=== PATIENT | female | born 1980 | race Caucasian/White ===

== ENCOUNTER 2017-06-02 10:09 | Emergency (ER) | payer SELFPAY ==
--- NOTE | 2017-06-02 10:15 | NUR ---
SEE PAPER CHARTING
== END 2017-06-02 10:16 | disposition home or self-care (01) ==
LOC: ER 10:09
DX: Z76.0 Encounter for issue of repeat prescription (principal); Z59.0 Homelessness

== ENCOUNTER 2017-06-05 19:16 | Emergency (ER) | payer SELFPAY ==
[~2017-06-05] VITALS: Ht 175.3 cm; Wt 108.9 kg
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
--- NOTE | 2017-06-05 19:42 | NUR ---
DONALD KAUFMAN AT BEDSIDE FOR EVAL.
--- NOTE | 2017-06-05 19:58 | NUR ---
IV LINE STARTED BLOOD DRAWN AND SENT TO LAB.
[2017-06-05 20:01] LABS: BASOPHILS # (AUTO) 0.1 /CMM (0.0-0.2); BASOPHILS % (AUTO) 1.3 % (0.0-2.0); EOSINOPHILS # (AUTO) 0.3 /CMM (0.0-0.7); EOSINOPHILS % (AUTO) 3.4 % (0.0-6.0); HEMATOCRIT 39 % (33-45); LYMPHOCYTES # (AUTO) 2.4 /CMM (0.8-4.8); MEAN CORPUSCULAR HEMOGLOBIN 30 PG (26.0-33.0); MEAN CORPUSCULAR HGB CONC 34 g/dl (31.0-36.0); MEAN CORPUSCULAR VOLUME 90 fL (82-100); MONOCYTES # (AUTO) 0.5 /CMM (0.1-1.30); NEUTROPHILS # (AUTO) 4.5 /CMM (1.8-8.9); NEUTROPHILS % (AUTO) 57.3 % (43.0-81.0); PLATELET COUNT (AUTO) 370 /CMM (150-450); WHITE BLOOD COUNT (AUTO) 7.8 K/uL (4.3-11.0)
[2017-06-05 20:13] LABS: CALCIUM, SERUM 8.6 mg/dL (8.5-10.1); CREATININE 0.5 mg/dL (0.6-1.3); POTASSIUM 3.8 mmol/L (3.5-5.1)
[2017-06-05 20:17] LABS: ALBUMIN 3.3 g/dL (3.4-5.0); BILIRUBIN,TOTAL 0.2 mg/dL (0.2-1.0); TOTAL PROTEIN, SERUM 6.7 g/dL (6.4-8.2)
[2017-06-05 20:18] LABS: SALICYLATE 1.1 mg/dL (2.8-20.0)
--- NOTE | 2017-06-05 22:30 | NUR ---
PT IS SLEEPING IN BED. ON MONITOR W/ STABLE VITALS NOTED. WILL CONTINUE TO MONITOR.
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
--- NOTE | 2017-06-06 00:30 | NUR ---
PT OK TO DISCHARGE PER DR ORNELAS. Patient discharged to home in stable condition. Written and verbal after care instructions given. Patient verbalizes understanding of instruction.Patient is awake and alert to self, day, and place. PT ambulatory with a steady gait
[2017-06-06 00:57] VITALS: BP 114/71
== END 2017-06-06 00:57 | disposition home or self-care (01) ==
LOC: ER 19:17
DX: F10.129 Alcohol abuse with intoxication, unspecified (principal); R41.82 Altered mental status, unspecified; R73.09 Other abnormal glucose
CPT/HCPCS: 36415; 80048; 80076; 80329; 82962; 84703; 85025; 99284; A4606; G0480 ×2; Z7610

== ENCOUNTER 2018-12-22 20:59 | Emergency (ER) | payer MEDICARE, MEDICAID ==
[~2018-12-22] VITALS: Ht 175.3 cm; Wt 125.6 kg
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
[2018-12-22] MEDS ORDERED: NICOTINE PATCH (21MG) 21 MG PATCH.TD24 TD SCH (21:30)
[2018-12-22 21:49] LABS: BASOPHILS # (AUTO) 0.1 /CMM (0.0-0.2); BASOPHILS % (AUTO) 0.7 % (0.0-2.0); EOSINOPHILS % (AUTO) 2.7 % (0.0-6.0); HEMATOCRIT 34 % (33-45); LYMPHOCYTES % (AUTO) 37.4 % (20.0-44.0); MEAN CORPUSCULAR HGB CONC 32 g/dl (31.0-36.0); MEAN CORPUSCULAR VOLUME 78 fL (82-100); MONOCYTES # (AUTO) 0.8 /CMM (0.1-1.30); MONOCYTES % (AUTO) 10.1 % (2.0-12.0); NEUTROPHILS % (AUTO) 49.1 % (43.0-81.0); PLATELET COUNT (AUTO) 322 /CMM (150-450); RED BLOOD CELL COUNT(AUTO) 4.37 MIL/uL (4.0-5.2); WHITE BLOOD COUNT (AUTO) 8.2 K/uL (4.3-11.0)
--- NOTE | 2018-12-22 22:05 | NUR ---
URINE COLLECTED AND SENT TO LAB
[2018-12-22 22:09] LABS: APPEARANCE,URINE Clear (CLEAR); BILIRUBIN,URINE Negative (NEGATIVE); BLOOD, URINE Negative Ery/uL (NEGATIVE); COLOR,URINE Yellow (YELLOW); KETONES,URINE Negative (NEGATIVE); LEUKOCYTE ESTERASE ,URINE Negative (NEGATIVE); NITRITE, URINE Negative (NEGATIVE); PH,URINE 5.5 (5.0-8.0); PROTEIN,URINE Negative (NEGATIVE); UGLUCOSE Negative (NEGATIVE); UROBILINOGEN,URINE 0.2 EU/dL (0.2)
[2018-12-22 22:10] LABS: ALBUMIN 3.4 g/dL (3.4-5.0); BILIRUBIN,DIRECT 0.1 mg/dL (0.0-0.2); BILIRUBIN,TOTAL 0.2 mg/dL (0.2-1.0); CALCIUM, SERUM 8.6 mg/dL (8.5-10.1); CREATININE 0.7 mg/dL (0.6-1.3); POTASSIUM 3.5 mmol/L (3.5-5.1); TOTAL PROTEIN, SERUM 7.4 g/dL (6.4-8.2)
[2018-12-22 22:12] LABS: SALICYLATE 2.1 mg/dL (2.8-20.0)
[2018-12-22] MEDS ORDERED: NICOTINE PATCH (21MG) 21 MG PATCH.TD24 TD ONE (22:12)
--- NOTE | 2018-12-22 22:38 | NUR ---
BROTHER URSZULA MIRANDA [phone]
[2018-12-22] MEDS ORDERED: OLANZAPINE 10 MG VIAL IM ONE ×2 (23:00→23:05)
--- NOTE | 2018-12-23 01:15 | NUR ---
Patient is resting comfortably in bed with eyes closed. Easily aroused. VSS
[2018-12-23 03:02] VITALS: BP 133/77
== END 2018-12-23 03:03 | disposition home or self-care (01) ==
LOC: ER 21:00
DX: F10.10 Alcohol abuse, uncomplicated (principal); F19.10 Other psychoactive substance abuse, uncomplicated; Z88.8 Allergy status to other drugs, medicaments and biological substances; Z59.0 Homelessness
CPT/HCPCS: 36415; 80048; 80076; 80305; 80307; 80329; 81001; 85025; 96372; 99283; G0480; J3490; 81000-TC

== ENCOUNTER 2018-12-23 04:55 | Emergency (ER) | payer MEDICARE, MEDICAID ==
[~2018-12-23] VITALS: Ht 167.6 cm; Wt 131.1 kg
[2018-12-23 04:55] VITALS: BP 151/78
--- NOTE | 2018-12-23 05:10 | NUR ---
CALLED IN WAITING ROOM, NO ANSWER.
--- NOTE | 2018-12-23 05:36 | NUR ---
CALLED IN WAITING ROOM, NO ANSWER.
--- NOTE | 2018-12-23 06:35 | NUR ---
CALLED IN WAITING ROOM, NO ANSWER.
== END 2018-12-23 06:35 | disposition left against medical advice (07) ==
LOC: ER 04:57
DX: Z53.21 Procedure and treatment not carried out due to patient leaving prior to being seen by health care provider (principal); R11.2 Nausea with vomiting, unspecified

== ENCOUNTER 2018-12-24 15:32 | Emergency (ER) | payer MEDICARE, MEDICAID ==
[~2018-12-24] VITALS: Ht 175.3 cm; Wt 125.6 kg
[2018-12-24 15:59] LABS: BASOPHILS # (AUTO) 0.1 /CMM (0.0-0.2); BASOPHILS % (AUTO) 0.9 % (0.0-2.0); EOSINOPHILS % (AUTO) 2.1 % (0.0-6.0); HEMATOCRIT 29 % (33-45); HEMOGLOBIN 9.5 g/dL (11.5-14.8); LYMPHOCYTES # (AUTO) 3.3 /CMM (0.8-4.8); LYMPHOCYTES % (AUTO) 37.2 % (20.0-44.0); MEAN CORPUSCULAR HGB CONC 33 g/dl (31.0-36.0); MEAN CORPUSCULAR VOLUME 79 fL (82-100); MONOCYTES # (AUTO) 0.6 /CMM (0.1-1.30); MONOCYTES % (AUTO) 7.3 % (2.0-12.0); NEUTROPHILS # (AUTO) 4.6 /CMM (1.8-8.9); NEUTROPHILS % (AUTO) 52.5 % (43.0-81.0); PLATELET COUNT (AUTO) 299 /CMM (150-450); RED BLOOD CELL COUNT(AUTO) 3.71 MIL/uL (4.0-5.2); WHITE BLOOD COUNT (AUTO) 8.8 K/uL (4.3-11.0)
[2018-12-24 16:06] LABS: CALCIUM, SERUM 7.5 mg/dL (8.5-10.1); CARBON DIOXIDE 25 mmol/L (21-32); CHLORIDE 109 mmol/L (98-107); CREATININE 0.6 mg/dL (0.6-1.3); GLUCOSE 97 mg/dL (74-106); POTASSIUM 3.6 mmol/L (3.5-5.1); SODIUM SERUM 143 mmol/L (136-145); UREA NITROGEN, BLOOD 9 mg/dL (7-18)
[2018-12-24 16:19] LABS: ACETAMINOPHEN < 5 ug/ml (10-30); ALANINE AMINOTRANSFERASE 38 U/L (12-78); ALBUMIN 2.9 g/dL (3.4-5.0); ALCOHOL, BLOOD 188 mg/dL (0-0); ALKALINE PHOSPHATASE 67 U/L (46-116); ASPARTATE AMINOTRANSFERASE 27 U/L (15-37); BILIRUBIN,TOTAL 0.1 mg/dL (0.2-1.0); SALICYLATE 1.6 mg/dL (2.8-20.0); TOTAL PROTEIN, SERUM 6.4 g/dL (6.4-8.2)
[2018-12-24] MEDS: NICOTINE PATCH (21MG) 21 MG PATCH.TD24 TD SCH (16:40)
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
[2018-12-24 18:49] LABS: APPEARANCE,URINE CLEAR (CLEAR); BILIRUBIN,URINE NEGATIVE (NEGATIVE); BLOOD, URINE NEGATIVE Ery/uL (NEGATIVE); COLOR,URINE YELLOW (YELLOW); KETONES,URINE NEGATIVE (NEGATIVE); LEUKOCYTE ESTERASE ,URINE 1+ (NEGATIVE); NITRITE, URINE NEGATIVE (NEGATIVE); PH,URINE 5.5 (5.0-8.0); PROTEIN,URINE NEGATIVE (NEGATIVE); UGLUCOSE NEGATIVE (NEGATIVE); UROBILINOGEN,URINE 0.2 EU/dL (0.2)
[2018-12-24 18:54] LABS: BACTERIA,URINE 1+ /HPF (None Seen); RBC,URINE NONE SEEN /HPF (0-2)
[2018-12-24 18:55] LABS: SQUAMOUS EPITHELIAL CELL,UR Few /HPF (None Seen)
[2018-12-24] MEDS ORDERED: CEFTRIAXONE 1 G VIAL IM ONE (19:30)
--- NOTE | 2018-12-24 19:30 | NUR ---
sitter at bedside for SI safety measures
--- NOTE | 2018-12-24 19:35 | NUR ---
Pt S/B [facility] FOR PSYCH EVAL AT BEDSIDE.
--- NOTE | 2018-12-24 19:47 | NUR ---
Note kileyone in EDM - 12/24/18 at 2006 by LUCINDA Pt IS CLEARED BY FOR DISCHARGE. CLEARED BY PSYCH FOR SAFE DC. ALL MEDS GIVEN.
[2018-12-24] MEDS ORDERED: LIDOCAINE /MPF 1% VIAL 5 ML VIAL ONE (19:51)
--- NOTE | 2018-12-24 20:04 | NUR ---
Note undone in EDM - 12/24/18 at 2006 by LUCINDA Patient discharged to home in stable condition. Written and verbal after care instructions given. Patient verbalizes understanding of instruction. is outside waiting for pt in car. Patient was taken outside via wheelchair by staff member, was safely transferred to car. Pt left facility with no s/s of acute distress or sob noted. VS stable. No IV access was placed on pt. ID band removed.
--- NOTE | 2018-12-24 20:06 | NUR ---
documented on wrong pt. Luciana Reddy in bed 15 is not yet discharged.
--- NOTE | 2018-12-24 20:13 | NUR ---
all out of rocephin vials in the ER pyxis. called pharmacy to restock. once pharmacy has restocked pyxis with rocephin will administer the ordered med to pt.
[2018-12-24] MEDS ORDERED: CEFTRIAXONE 500 MG VIAL ONE (20:25)
--- NOTE | 2018-12-24 20:49 | NUR ---
administered Rocephin 1g IM on left deltoid.
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
[2018-12-24] MEDS ORDERED: ACETAMINOPHEN ES 500 MG TABLET ONE (21:29)
[2018-12-24] MEDS ORDERED: ACETAMINOPHEN ES 500 MG TABLET PO ONE (21:30)
--- NOTE | 2018-12-24 21:40 | NUR ---
ADMINISTERED TYLENOL ES 1000MG PO. Pt C/O GENERALIZED PAIN ALL OVER BODY.
--- NOTE | 2018-12-24 23:14 | NUR ---
pt is sleeping comfortably in bed. No s/s of acute distress or sob noted. Respirations even and unlabored, with Equal chest rise and fall. Sitter at bedsdie for SI safety measures. Will continue to monitor pt's condition and safety.
--- NOTE | 2018-12-25 02:35 | NUR ---
Pt asleep in bed. NO s/s of acute distress or sob noted. VS stable. Respirations even and unlabored. Sitter at bedside. Will continue to monitor pt's condition and safety.
--- NOTE | 2018-12-25 04:20 | NUR ---
Pt comfortably asleep in bed easily awakened by name & slight tough. No s/s of acute distress or sob noted. VS stable. Will continue to monitor pt's condition and safety. Sitter at bedside for SI safety measures.
--- NOTE | 2018-12-25 06:33 | NUR ---
waiting for bed placement to be available either in [facility] or [facility].
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
[2018-12-25] MEDS: NICOTINE PATCH (21MG) 21 MG PATCH.TD24 TD SCH (09:06)
[2018-12-25] MEDS ORDERED: NICOTINE PATCH (21MG) 21 MG PATCH.TD24 TD SCH (09:30)
[2018-12-25 11:30] VITALS: BP 122/65
--- NOTE | 2018-12-25 12:07 | NUR ---
report given to baltazar emt for [facility]
== END 2018-12-25 12:15 ==
LOC: ER 15:32
DX: F10.129 Alcohol abuse with intoxication, unspecified (principal); F19.10 Other psychoactive substance abuse, uncomplicated; N39.0 Urinary tract infection, site not specified; F25.9 Schizoaffective disorder, unspecified; F31.9 Bipolar disorder, unspecified; Z88.8 Allergy status to other drugs, medicaments and biological substances; Z59.0 Homelessness; Y90.6 Blood alcohol level of 120-199 mg/100 ml
CPT/HCPCS: 36415; 80048; 80076; 80305; 80307 ×3; 80329; 81001; 84703; 85025; 87077; 87086; 87186; 96372; 99285; G0480; J0696; J3490; 81000-TC